=== PATIENT | female | born 1945 | race Caucasian/White ===

== ENCOUNTER 2019-12-27 12:02 | Emergency (ER) | payer OTHER ==
[~2019-12-27] VITALS: Ht 157.5 cm; Wt 73.5 kg
[~2019-12-27 12:02] MED LIST: METF-988 PO; PIOG45TA PO; SIMV-33 PO
[2019-12-27 12:43] VITALS: BP 165/92
--- NOTE | 2019-12-27 13:27 | NUR ---
Patient BIBA BLS, transferred to bed 3. RN evaluating patient at bedside.
--- NOTE | 2019-12-27 14:10 | NUR ---
C/O MEC FALL RT SIDE KNEE, RT SIDE ARM, HEAD HX-HNT NKA PAIN 06/12. PT'S ANOTHER DAUGHTER WAS THE WITNESS. PT AWAKE, ALERT. ABLE TO FOLLOW COMMANDS. DENIES LOC CHANGED. NO BUMP TO HEAD NOTED.DENIES N/V/D; VSS; PATIENT POSITIONED FOR COMFORT; HOB ELEVATED; BEDRAILS UP X2; BED DOWN. ER MD MADE AWARE OF PT STATUS. PT'S AND DAUGHTER AT BEDSIDE.
[2019-12-27] MEDS ORDERED: KETOROLAC 60 MG/2 ML VIAL IM ONE (15:00)
[2019-12-27] MEDS ORDERED: MORPHINE SULFATE 4 MG/ML SYR IM ONE (16:00)
[2019-12-27 17:08] VITALS: BP 143/89
--- NOTE | 2019-12-27 17:10 | NUR ---
Patient discharged with v/s stable. Written and verbal after care instructions given and explained. Patient alert, oriented and verbalized understanding of instructions. Wheel Chair Assisted with to car. All questions addressed prior to discharge. ID band removed. Patient advised to follow up with PMD. Rx of NORCO AND MOTRIN given. Patient educated on indication of medication including possible reaction and side effects. Opportunity to ask questions provided and answered.
== END 2019-12-27 17:10 | disposition home or self-care (01) ==
LOC: MED 12:02
DX: M25.511 Pain in right shoulder (principal); M25.561 Pain in right knee; M25.521 Pain in right elbow; E11.9 Type 2 diabetes mellitus without complications; I10 Essential (primary) hypertension; Z98.890 Other specified postprocedural states; Z79.84 Long term (current) use of oral hypoglycemic drugs; Z79.899 Other long term (current) drug therapy; W07.XXXA Fall from chair, initial encounter; Y93.89 Activity, other specified; Y92.89 Other specified places as the place of occurrence of the external cause; Y99.8 Other external cause status
CPT/HCPCS: 73030; 73080; 73562; 81002; 81025; 96372; 99284; J1885; J2270

== ENCOUNTER 2020-11-20 14:19 | Emergency (ER) | payer OTHER ==
[~2020-11-20] VITALS: Ht 154.9 cm; Wt 83.0 kg
--- NOTE | 2020-11-20 14:43 | NUR ---
Note undone in EDM - 11/20/20 at 1445 by [facility] 75 YO F C/O RIGHT-SIDED BACK AND KNEE PAIN S/P FALL X 3 WEEKS , 8/10 PAIN. IN ED, VSS. PT WITH PAIN UPON WALKING, USING WALKER TO AMBULATE. 4/5 EDEMA NOTED ON BOTH LOWER EXTREMITIES. PMH: DM, HTN, THYROID DSE NKA
--- NOTE | 2020-11-20 14:45 | NUR ---
75 YO F C/O RIGHT-SIDED BACK AND KNEE PAIN S/P FALL X 3 WEEKS , 8/10 PAIN. IN ED, VSS. PT WITH PAIN UPON WALKING, USING WALKER TO AMBULATE. 4/5 EDEMA NOTED ON BOTH LOWER EXTREMITIES. PT ASKED TO WAIT IN LOBBY. ERMD MADE AWARE OF PT STATUS. PMH: DM, HTN, THYROID DSE NKA
[2020-11-20] MEDS ORDERED: KETOROLAC 30 MG/ML VIAL IVP ONE (15:35)
[2020-11-20] MEDS ORDERED: FUROSEMIDE 40 MG/4 ML VIAL IVP ONE (15:35)
[2020-11-20 16:01] LABS: BASOPHILS # (AUTO) 0.1 K/uL (0.00-0.22); BASOPHILS % (AUTO) 0.5 % (0.0-2.0); EOSINOPHILS # (AUTO) 0.2 K/uL (0-0.4); EOSINOPHILS % (AUTO) 1.2 % (0.0-4.0); HEMATOCRIT 31.1 % (36-48); HEMOGLOBIN 10.5 g/dL (12.0-16.0); LYMPHOCYTES # (AUTO) 1.6 K/uL (2.5-16.5); LYMPHOCYTES % (AUTO) 10.8 % (20.5-51.1); MEAN CORPUSCULAR HEMOGLOBIN 31 pg (27-31); MEAN CORPUSCULAR HGB CONC 34 g/dL (33-37); MEAN CORPUSCULAR VOLUME 90.1 fL (80-94); MONOCYTES # (AUTO) 0.7 K/uL (0.8-1.0); MONOCYTES % (AUTO) 4.8 % (1.7-9.3); NEUTROPHILS # (AUTO) 11.9 K/uL (1.8-7.7); NEUTROPHILS % (AUTO) 82.7 % (42.2-75.2); PLATELET COUNT (AUTO) 265 K/uL (140-450); RED BLOOD CELL COUNT(AUTO) 3.46 MIL/uL (4.20-5.40); RED CELL DISTRIBUTION WIDTH 14.4 % (11.6-13.7); WHITE BLOOD COUNT (AUTO) 14.3 K/uL (4.8-10.8)
[2020-11-20 16:13] LABS: PROTHROMBIN TIME 9.2 secs (10.8-13.4)
[2020-11-20 16:22] LABS: APPEARANCE,URINE CLEAR (CLEAR); BILIRUBIN,URINE NEGATIVE (NEGATIVE); BLOOD, URINE TRACE-I (NEGATIVE); COLOR,URINE YELLOW (YELLOW); LEUKOCYTE ESTERASE ,URINE NEGATIVE (NEGATIVE); NITRITE, URINE NEGATIVE (NEGATIVE); UGLUCOSE 2+ (NEGATIVE)
[2020-11-20 16:46] LABS: YEAST,URINE Few /HPF (None Seen)
--- NOTE | 2020-11-20 17:00 | NUR ---
PT ALERT AND AWAKE, STATES SHE IS FEELING MUCH BETTER
[2020-11-20 17:12] LABS: ALBUMIN 1.6 g/dL (3.4-5.0); ANION GAP 12.9 (8-16); ASPARTATE AMINOTRANSFERASE 17 U/L (15-37); CARBON DIOXIDE 26.2 mmol/L (21-32); CHLORIDE 104 mmol/L (98-107); GLUCOSE 398 mg/dL (74-106); POTASSIUM 4.1 mmol/L (3.5-5.1); SODIUM SERUM 139 mmol/L (136-145); TOTAL BILIRUBIN 0.3 mg/dL (0.0-1.0); UREA NITROGEN, BLOOD 27 mg/dL (7-18)
[2020-11-20 17:50] VITALS: BP 160/89
--- NOTE | 2020-11-20 17:50 | NUR ---
Patient discharged with v/s stable. Written and verbal after care instructions about back pain and peripheral edema given and explained. Patient alert, oriented and verbalized understanding of instructions. Ambulatory with steady gait. All questions addressed prior to discharge. ID band removed. Patient advised to follow up with PMD. Rx of tramadol given. Patient educated on indication of medication including possible reaction and side effects. Opportunity to ask questions provided and answered.
== END 2020-11-20 17:50 | disposition home or self-care (01) ==
LOC: MED 14:19
DX: S32.059A Unspecified fracture of fifth lumbar vertebra, initial encounter for closed fracture (principal); E11.9 Type 2 diabetes mellitus without complications; I10 Essential (primary) hypertension; E07.9 Disorder of thyroid, unspecified; W18.39XA Other fall on same level, initial encounter; Y93.89 Activity, other specified; Y92.89 Other specified places as the place of occurrence of the external cause; Y99.8 Other external cause status
CPT/HCPCS: 36415; 71045; 72131; 73562; 74176; 80053; 81001; 83605; 83880; 84484; 85025; 85610; 85730; 87040; 87086; 93005; 96374; 96375; 99285; J1885; J1940

== ENCOUNTER 2020-12-05 14:57 | Emergency (ER) | payer OTHER ==
[~2020-12-05] VITALS: Ht 154.9 cm; Wt 68.9 kg
--- NOTE | 2020-12-05 15:00 | NUR ---
PATIENT TAKEN TO BED 6
[2020-12-05 15:10] VITALS: BP 96/39
--- NOTE | 2020-12-05 15:40 | NUR ---
Patient wheelchair assisted to bed 11
[2020-12-05] MEDS: HYDROcodone/APAP 5/325 MG 1 TAB TAB PO ONE (18:11)
[2020-12-05 18:20] LABS: BASOPHILS % (AUTO) 0.6 % (0.0-2.0); EOSINOPHILS # (AUTO) 0.2 K/uL (0-0.4); EOSINOPHILS % (AUTO) 2.2 % (0.0-4.0); HEMATOCRIT 26.5 % (36-48); LYMPHOCYTES # (AUTO) 1.6 K/uL (2.5-16.5); LYMPHOCYTES % (AUTO) 17.4 % (20.5-51.1); MEAN CORPUSCULAR HEMOGLOBIN 30 pg (27-31); MEAN CORPUSCULAR HGB CONC 34 g/dL (33-37); MONOCYTES # (AUTO) 0.6 K/uL (0.8-1.0); MONOCYTES % (AUTO) 6.1 % (1.7-9.3); NEUTROPHILS # (AUTO) 6.7 K/uL (1.8-7.7); NEUTROPHILS % (AUTO) 73.7 % (42.2-75.2); PLATELET COUNT (AUTO) 326 K/uL (140-450); RED BLOOD CELL COUNT(AUTO) 3.01 MIL/uL (4.20-5.40); RED CELL DISTRIBUTION WIDTH 14.1 % (11.6-13.7); WHITE BLOOD COUNT (AUTO) 9.1 K/uL (4.8-10.8)
--- NOTE | 2020-12-05 18:43 | NUR ---
75 Y/O F C/O BILATERAL LEG PAIN, WITH PITTING EDEMA +3, 10/10 SHARP PAIN, RADIATES UP LEG. STATES RIGHT LEG IS WORSE. UNABLE TO AMBULATE, USES WHEELCHAIR, UNABLE TO BEAR WEIGHT ON BOTH LEGS. MEDICAL HX OF DM, UNABLE TO INFORM ME ABOUT WHICH MEDS SHE TAKES. DENIES ANY SYMPTOMS OF COVID OR CONTACT WITH ANYONE POSTIVE WITH COVID. NKA.
[2020-12-05 18:55] LABS: ALBUMIN 1.4 g/dL (3.4-5.0); ANION GAP 12.3 (8-16); ASPARTATE AMINOTRANSFERASE 13 U/L (15-37); CARBON DIOXIDE 23.8 mmol/L (21-32); CHLORIDE 108 mmol/L (98-107); CREATININE 1.5 mg/dL (0.6-1.3); GLUCOSE 266 mg/dL (74-106); POTASSIUM 3.1 mmol/L (3.5-5.1); SODIUM SERUM 141 mmol/L (136-145); TOTAL BILIRUBIN 0.2 mg/dL (0.0-1.0); UREA NITROGEN, BLOOD 22 mg/dL (7-18)
--- NOTE | 2020-12-05 19:25 | NUR ---
RECEIVED CHANGE OF SHIFT REPORT FROM MARTI HAWLEY FOR CONTINUATION OF CARE.
--- NOTE | 2020-12-05 19:25 | NUR ---
PT FOUND LYING IN SEMI-FOWLERS IN BED. PT IS AOX4. PT STATES 5/10 LEFT PAIN. PT LEFT LEG IS SLIGHTLY SWOLLEN. PT HAS CAPILLARY REFILL LESS THAN 2 SECONDS IN ALL FINGERS AND TOES. PT DENIES OTHER MEDICAL COMPLAINTS. BED IS LOCKED IN LOWEST POSITION WITH 1 SIDE RAIL UP.
--- NOTE | 2020-12-05 19:51 | NUR ---
PT WAS PROVIDED A BEDPAN TO USE.
--- NOTE | 2020-12-05 19:55 | NUR ---
URINE SAMPLE COLLECTED
--- NOTE | 2020-12-05 20:00 | NUR ---
Urine sample walked to lab and handed to Jesica Mckinley Tech.
[2020-12-05 20:18] LABS: APPEARANCE,URINE CLOUDY (CLEAR); BILIRUBIN,URINE NEGATIVE (NEGATIVE); BLOOD, URINE TRACE-I (NEGATIVE); COLOR,URINE YELLOW (YELLOW); LEUKOCYTE ESTERASE ,URINE NEGATIVE (NEGATIVE); NITRITE, URINE NEGATIVE (NEGATIVE); UGLUCOSE 1+ (NEGATIVE)
[2020-12-05] MEDS: FUROSEMIDE 40 MG/4 ML VIAL IVP ONE (20:25)
[2020-12-05] MEDS: POTASSIUM CHLORIDE 10 MEQ TABER PO ONE (20:26)
[2020-12-05 20:32] LABS: RBC,URINE 0-5 /HPF (0-5); WBC,URINE 16-25 (MOD) /HPF (0-5)
[2020-12-05 20:45] VITALS: BP 146/84
--- NOTE | 2020-12-05 20:45 | NUR ---
Patient discharged with v/s stable. Written and verbal after care instructions given and explained. Patient alert, oriented and verbalized understanding of instructions. Wheel Chair Assisted with to LOBBY. All questions addressed prior to discharge. ID band removed. Patient advised to follow up with PMD. Rx of POTASSIUM CHLORIDE, TRAMADOL HYDROCHLORIDE, AND LASIX given. Patient educated on indication of medication including possible reaction and side effects. Opportunity to ask questions provided and answered.
--- NOTE | 2020-12-05 20:45 | NUR ---
IV removed, catheter intact and site benign. Applied folded 4x4 gauze and tape to stop bleeding.
--- NOTE | 2020-12-06 15:43 | NUR ---
MADE ATTEMPT TO CALL PT FOR NEW RX BUT PHONE NUMBER IMMEDIATELY SENDS MESSAGE "YOU HAVE REACHED A NUMBER WHERE A VOICEMAIL HAS NOT BEEN SET UP YET." THIS IS THE ONLY NUMBER WE HAVE ON FILE FOR EVERY PERSON, PT, NOK AND PERSON TO NOTIFY. UNABLE TO GET AHOLD OF PATIENT.
== END 2020-12-05 20:45 | disposition home or self-care (01) ==
LOC: MED 14:57
DX: N28.9 Disorder of kidney and ureter, unspecified (principal); E87.6 Hypokalemia; N39.0 Urinary tract infection, site not specified; R60.0 Localized edema; E11.9 Type 2 diabetes mellitus without complications; I10 Essential (primary) hypertension; Z79.899 Other long term (current) drug therapy
CPT/HCPCS: 36415; 71045; 80053; 81001; 83880; 84484; 85025; 87086; 93005; 93970; 96374; 99285; J1940